=== PATIENT | female | born 1990 | race Caucasian/White ===

== ENCOUNTER 2023-12-05 19:00 | Inpatient (IN) | payer MEDICAID, OTHER, SELFPAY ==
[2023-12-05] MEDS ORDERED: hydrALAZINE 20 MG/ML VIAL SLOW IVP PRN (19:48)
[2023-12-05] MEDS ORDERED: Promethazine HCl 25 MG/ML VIAL IM PRN (19:48)
[2023-12-05] MEDS ORDERED: Lidocaine 1% (PF) 30 ML VIAL SC PRN (19:48)
[2023-12-05] MEDS ORDERED: Ondansetron PF 4 MG/2 ML Vial IVP PRN (19:48)
[2023-12-05] MEDS ORDERED: Tranexamic Acid 1,000 MG/10 ML VIAL IVP PRN (19:49)
[2023-12-05] MEDS ORDERED: Misoprostol 200 MCG TAB PR PRN (19:49)
[2023-12-05] MEDS ORDERED: Diphenoxylate HCl/Atropine Tablet PO PRN (19:49)
[2023-12-05] MEDS ORDERED: Methylergonovine 0.2 MG/ML VIAL IM PRN (19:49)
[2023-12-05] MEDS ORDERED: Oxytocin 30 units/NS 500 ML 500 ML IV SCH ×2 (20:00)
[2023-12-05 20:52] VITALS: BMI 33.0
[2023-12-05] MEDS ORDERED: Misoprostol 100 MCG TAB VAG SCH (21:00)
[2023-12-05 21:47] LABS: Hematocrit 38.7 % (34.9-44.5); Mean Corpuscular HGB CONC 33.9 g/dL (32.0-36.0); Mean Corpuscular Hemoglobin 29.3 pg (27.0-33.0); Mean Corpuscular Volume 86.5 fL (81.6-98.3); Mean Platelet Volume 9.5 fL (7.4-10.4); Platelet Count 274 10x3/uL (150-450); RBC Distribution Width 22.5 % (11.5-14.5); Red Blood Cell (RBC) Count 4.44 10x6/uL (3.90-5.03); White Blood Cell (WBC) Count 7.9 10x3/uL (3.5-10.5)
[2023-12-05 23:25] LABS: Syphilis Antibody Nonreactive (Nonreactive); Syphilis Antibody Index 0.04 S/CO (<1.00 Non-Reactive)
[2023-12-05 23:28] LABS: Hep B Surf Ag - L&D Non-Reactive S/CO (NonReactive)
[2023-12-06] MEDS ORDERED: Ondansetron PF 4 MG/2 ML Vial IVP PRN ×3 (12:37→16:59)
[2023-12-06] MEDS ORDERED: Moisturizing Cream (Eucerin) 113 GM JAR TOP PRN ×2 (12:37→16:59)
[2023-12-06] MEDS ORDERED: diphenhydrAMINE 50 MG/ML VIAL IVP PRN ×2 (12:37→16:59)
[2023-12-06] MEDS ORDERED: Lactated Ringer's 500 ML IV PRN (12:37)
[2023-12-06] MEDS ORDERED: Naloxone HCl 0.4 mg/ml Vial IVP PRN ×4 (12:37→16:59)
[2023-12-06] MEDS ORDERED: Acetaminophen 325 MG TAB PO PRN ×2 (12:37→17:05)
[2023-12-06] MEDS ORDERED: Promethazine HCl 25 MG/ML VIAL IM PRN ×2 (12:37→16:59)
[2023-12-06] MEDS ORDERED: ePHEDrine Sulfate 50 MG/10 ML VIAL SLOW IVP PRN (12:37)
[2023-12-06] MEDS ORDERED: Communication Order-Pharmacy FS SCH ×2 (12:45→17:00)
[2023-12-06] MEDS ORDERED: Famotidine/PF 20 mg/2ml Vial SLOW IVP PRN (14:59)
[2023-12-06] MEDS ORDERED: Bicitra 30 ML UDCUP PO PRN (14:59)
[2023-12-06] MEDS: fentaNYL 2 mcg/Ropivacaine 0.2% Epidural 100 ML CADD EPIDURAL SCH (15:42)
[2023-12-06] MEDS: Lactated Ringer's 1,000 ML IV SCH (15:45)
[2023-12-06] MEDS: CEFAZOLIN 2 GM in Sodium Chloride 0.9% 100 ML IVPB SCH (15:46)
[2023-12-06] MEDS ORDERED: Naloxone HCl 0.4 mg/ml Vial IV PRN (16:59)
[2023-12-06] MEDS ORDERED: fentaNYL 50 mcg/mL 1 mL Vial SLOW IVP PRN (16:59)
[2023-12-06] MEDS ORDERED: Lanolin Ointment 7 GM TUBE TOP PRN (17:05)
[2023-12-06] MEDS ORDERED: hydrALAZINE 20 MG/ML VIAL SLOW IVP PRN (17:05)
[2023-12-06] MEDS: Ketorolac Tromethamine 30 MG (1 mL) VIAL IVP SCH (17:55)
[2023-12-06] MEDS: Oxytocin 30 units/NS 500 ML 500 ML IV SCH (18:34)
[2023-12-06] MEDS: Meperidine HCl/PF 25 MG (1 mL) VIAL SLOW IVP PRN (18:34)
[2023-12-06] MEDS: Terbutaline Sulfate 1 MG/ML VIAL SC SCH (20:39)
[2023-12-06] MEDS: Lidocaine 1% (PF) 30 ML VIAL ONE (20:39)
[2023-12-06] MEDS: Mineral Oil ENEMA PR SCH (20:39)
[2023-12-06] MEDS: fentaNYL/Ropivacaine Epidural 100 ML ONE (20:39)
[2023-12-06] MEDS: Ondansetron PF 4 MG/2 ML Vial ONE (20:40)
[2023-12-06] MEDS: Dexamethasone 10 MG/ML VIAL ONE (20:40)
[2023-12-06] MEDS: CEFAZOLIN 2 GM VIAL ONE (20:40)
[2023-12-06] MEDS: Morphine PF 10 MG/10 ML VIAL ONE (20:40)
[2023-12-06] MEDS: Oxytocin 10 UNITS/ML VIAL ONE (20:40)
[2023-12-06] MEDS: PHENYLEPHRINE-NS 100 MCG/ML 10 ML SYRINGE ONE (20:41)
[2023-12-06] MEDS: Phytonadione Neonatal 1 MG/0.5 ML AMP ONE (20:41)
[2023-12-06] MEDS: Erythromycin Base 0.5% Oint 1 GM TUBE ONE (20:41)
[2023-12-06] MEDS: Docusate 100 MG CAP PO SCH (21:59)
[2023-12-07] MEDS: Ketorolac Tromethamine 30 MG (1 mL) VIAL IVP PRN (00:11)
[2023-12-07 05:30] LABS: Hematocrit 33.7 % (34.9-44.5); Hemoglobin 11.2 g/dL (12.0-15.5); Mean Corpuscular HGB CONC 33.2 g/dL (32.0-36.0); Mean Corpuscular Hemoglobin 29.3 pg (27.0-33.0); Mean Corpuscular Volume 88.2 fL (81.6-98.3); Mean Platelet Volume 9.6 fL (7.4-10.4); Platelet Count 249 10x3/uL (150-450); RBC Distribution Width 21.9 % (11.5-14.5); Red Blood Cell (RBC) Count 3.82 10x6/uL (3.90-5.03); White Blood Cell (WBC) Count 11.3 10x3/uL (3.5-10.5)
[2023-12-07] MEDS: HYDROcodone/Acetaminophen 5/325 mg Tablet PO PRN (08:10)
[2023-12-07] MEDS: Prenatal Vitamin 1 TAB PO SCH (08:11)
[2023-12-07] MEDS: Ibuprofen 800 MG TAB PO SCH (13:34)
[2023-12-08 11:37] VITALS: BP 102/56; TEMP 97.7
[2023-12-08 11:49] LABS: #Basophils 0.04 10x3/uL (0.0-0.2); #Eosinphils 0.11 10x3/uL (0.0-0.5); #Monocytes 0.41 10x3/uL (0.0-1.1); #Neutrophils 8.54 10x3/uL (1.5-8.4); %Basophils 0.4 % (0.0-2.0); %Lymphocytes 19.9 % (18.0-47.0); %Monocytes 3.6 % (0.0-10.0); %Neutrophils 74.7 % (40.0-75.0); Hematocrit 34.3 % (34.9-44.5); Hemoglobin 11.3 g/dL (12.0-15.5); Mean Corpuscular HGB CONC 32.9 g/dL (32.0-36.0); Mean Corpuscular Hemoglobin 29.3 pg (27.0-33.0); Mean Corpuscular Volume 88.9 fL (81.6-98.3); Mean Platelet Volume 9.1 fL (7.4-10.4); Platelet Count 268 10x3/uL (150-450); RBC Distribution Width 22.5 % (11.5-14.5); Red Blood Cell (RBC) Count 3.86 10x6/uL (3.90-5.03); White Blood Cell (WBC) Count 11.4 10x3/uL (3.5-10.5)
[2023-12-08] MEDS: Acetaminophen 325 MG TAB PO SCH (13:48)
[2023-12-08] MEDS: HYDROcodone/Acetaminophen 5/325 mg Tablet PO PRN (13:49)
[2023-12-08] MEDS: Polyethylene Glycol 3350 17 GM Packet PO SCH (13:49)
== END 2023-12-08 15:45 | disposition home or self-care (01) | DRG 788 ==
LOC: CSHLD 20:23 → CSHPP 12-06 19:40
PROVIDERS: ADMIT Family Medicine; ATTEND Family Medicine
PROC: 10D00Z1 Extraction of Products of Conception, Low, Open Approach (ICD-10-PCS; principal; 2023-12-06)
DX: O99.02 Anemia complicating childbirth (principal); Z3A.39 39 weeks gestation of pregnancy; Z37.0 Single live birth; O32.1XX0 Maternal care for breech presentation, not applicable or unspecified; Z79.82 Long term (current) use of aspirin; O09.523 Supervision of elderly multigravida, third trimester; Z88.0 Allergy status to penicillin; D50.9 Iron deficiency anemia, unspecified; O34.83 Maternal care for other abnormalities of pelvic organs, third trimester; N83.292 Other ovarian cyst, left side
CPT/HCPCS: 36415; 51702; 76815; 76817; 85025; 85027; 86780; 86850; 86900; 86901; 87340; J1100; J1885; J2175; J2274; J2405; J2590; J7120